=== PATIENT | male | born 1935 | race Caucasian/White ===

== ENCOUNTER 2017-06-25 14:20 | Inpatient (IN) ==
--- NOTE | 2017-06-25 16:01 | XRay Report ---
XR chest 2V Indication: Congestion, cough Comparison: 29 Jan 2014 Findings: The heart and mediastinum are stable in size and configuration with cardiac surgery changes. Pacemaker device is unchanged in position. The pulmonary vascularity is normal in caliber. Lung volumes are increased with prominent bronchial markings. There is increased right midlung density. No other lung infiltrates, effusions, pneumothorax or other abnormality is demonstrated. Impression: Increased right midlung density may indicate pneumonia. PROCEDURE INTERPRETED AT [facility] DEPARTMENT OF RADIOLOGY Final Report Signed by: Dr. Tutu Osborne
--- NOTE | 2017-06-25 16:30 | Emergency Department Note ---
Arrival - Arrival Chief Complaint: Upper Respiratory Stated Complaint: Body ache, high fever, nauseated ED Nursing Triage Note: cough and body aches with fever x 2 days - pt states that his has been sick with URI Mode of Arrival: Ambulatory Limitations: No Limitations Source: Patient Time Seen by Provider: 06/25/17 16:24 - History of Present Illness HPI Narrative: 82 year old white male patient presents to the ER complaining of fever, body aches, cough and chills. Symptoms started three days ago. Denies urinary symptoms, dyspnea, or chest pain. Patient states "I feel like I have the flu". Reports recent exposure to URI/Bronchitis by his . He has been alternating tylenol and aspirin for fever. PMH: cardiac disease, bph, degenerative joint disease, hyperlipidemia, CABG, Aortic Aneurysm, Aortic valve replacement. PCP: Dr. Aviles. Onset (ago): day(s) Consistency: intermittent Severity: moderate Severity scale (1-10): 3 Quality: aching Allergies/Adverse Reactions: Allergies Allergy/AdvReac Type Severity Reaction Status Date / Time No Known Allergies Allergy Verified 01/16/15 06:42 Home Medications: Home Medications Medication Instructions Recorded Confirmed Type Aspirin Tab 325 mg PO DAILY 01/16/15 06/25/17 History Carvedilol 6.25 mg PO BID 01/16/15 06/25/17 History Flomax 0.4 mg PO DAILY 01/16/15 06/25/17 History Isosorbide Mononitrate [Imdur] 30 mg PO DAILY 01/16/15 06/25/17 History Nitroglycerin Sl Tab [Nitrostat] 0.4 mg SL Q5M PRN 01/16/15 06/25/17 History Potassium Chloride Tab [K Dur] 20 meq PO DAILY 01/16/15 06/25/17 History Torsemide 20 mg PO DAILY 01/16/15 06/25/17 History Vitamin D 1,000 units PO DAILY 01/16/15 06/25/17 History amLODIPine [Norvasc] 10 mg PO DAILY 01/16/15 06/25/17 History Amlodipine Besylate 10 mg PO DAILY 06/25/17 06/25/17 History Amoxicillin/Clav Tab [Augmentin 875 mg PO Q12H #8 tablet 06/28/17 Rx Tab] Review of System - Review of System 12 point system: reviewed and no additional remarkable complaints except as stated - Review of System Constitutional: Present: chills (occurs with fever ), fever (reports intermittent fever of 101-102). 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.), Cerebrovascular Disease (possible stroke after AVR placement.), CAD, Hypertension, Pacemaker, Valvular Heart Disease (AVR replacement), Cardiovascular Problems (has a disecting aortic aneurysm..Type A..diagnosed in 2011) No history of: Congenital Heart Disease, CHF, [place], PVD Neurology: History of: Cerebrovascular Accident, Dementia (possibly early signs of dementia) Endocrine: History of: Dyslipidemia Genitourinary: History of: Kidney Stones, Prostate Problems (BPH) Musculoskeletal: History of: Musculoskeletal Problems (degenerative joint disease-knees) - Surgical History Cardiac Surgeries: Sugical HX of: Cardiac Catheterization, Cardiac Surgery ( cabg and avr) Patient Denies: Femoral-Popliteal Bypass Graft, Carotid Endarterectomy, Internal Defibrillator, Vascular Access Devices HEENT Surgeries: Surgical HX of: Tonsilectomy & Adenoidectomy Patient denies: Carotid Endarterectomy Abdominal Surgeries: Patient denies: Splenectomy - Family History Family History: Reports;: Family Diabetes (sister, brother), Family Heart Disease (brother, mother-valve), Family Hypertension (brother) - Social History Smoking Status: Never smoker Frequency of Alcohol Use: None Type of Drug Use: None Exam Vital Signs: Vital Signs Temperature 98.1 F 06/28/17 12:30 Pulse Rate 93 H 06/28/17 12:30 Respiratory Rate 20 06/28/17 12:30 Blood Pressure 115/72 06/28/17 12:30 O2 Sat by Pulse Oximetry 95 06/28/17 12:30 - General General appearance: alert, in no apparent distress - Eye Eye exam: Present: normal appearance - ENT ENT exam: Present: normal exam, normal oropharynx, mucous membranes moist - Chest Chest inspection: Present: normal inspection - Respiratory Respiratory exam: Present: normal lung sounds bilaterally. Absent: respiratory distress, rhonchi, stridor - Cardiovascular Cardiovascular exam: Present: regular rate, normal rhythm, normal heart sounds - Abdominal Exam Abdominal exam: Present: soft, normal bowel sounds. Absent: tenderness - Extremities Exam Extremities exam: Present: normal inspection, full ROM - Back Exam Back exam: Absent: CVA tenderness (R), CVA tenderness (L) - Neurological Exam Neurological exam: Present: alert, oriented X3 - Psychiatric Psychiatric exam: Present: normal affect, normal mood - Skin Skin exam: Present: warm, dry Course Course Narrative: Patient signed over to Dr. Busch at 1800. Results - Labs CBC & BMP: 06/28/17 07:17 06/28/17 07:17 Lab Results: I have reviewed the patients labs - Diagnostic Findings Procedure: Chest x-ray: image reviewed by me, report reviewed by me (increased right lung density may indicate pneumonia) Disposition Clinical Impression: Pneumonia Disposition: Still a Patient Condition: Stable New Prescriptions: Rx's Medication Instructions Recorded Amoxicillin/Clav Tab [Augmentin 875 mg PO Q12H #8 tablet 06/28/17 Tab]
[2017-06-25 17:55] LABS: Basophils % 0.2 % (0.0-0.8); Eosinophils % 0.2 % (0.00-10.9); Hematocrit 46.1 VOL% (42.0-52.0); Hemoglobin 15.9 GM/DL (14.0-18.0); Immature Granulocytes % 0.4 %; Immature Granulocytes Absolute 0.02 #; Lymphocytes # 0.7 10*3/uL (1.4-4.0); Mean Corpuscular HGB Conc 34.5 GM/DL (32-36); Mean Corpuscular Hemoglobin 33 PG (27-34); Mean Corpuscular Volume 95.6 FL (87-102); Mean Platelet Volume 10.5 FL (9.6-12.0); Monocytes # 0.5 10*3/uL (0.11-0.8); Monocytes % 11.1 % (1.7-12.7); Neutrophils # 3.6 10*3/uL (1.4-7.4); Neutrophils % 74.1 % (38.7-73.9); Platelet Count 91 T/CUMM (130-400); Red Blood Count 4.82 MC/CUMM (3.8-5.5); Red Cell Distribution Width 13.3 % (9.3-17.3); White Blood Count 4.8 T/CUMM (4-12)
[2017-06-25 17:59] LABS: Apearance,Urine CLEAR (Clear); Bilirubin,Urine Negative (Negative); Blood, Urine Negative (Negative); Glucose,Urine (UA) Negative (Negative); Hyaline Casts,Urine 2 /LPF (0-3); Ketones,Urine Negative (Negative); Mucus,Urine Occasional /LPF (Occasional); Nitrite,Urine Negative (Negative); Protein,Urine Negative; Urine Color Yellow (Yellow); Urine Specific Gravity 1.013 (1.001-1.035); Urine Urobilinogen < 2.0 EU/DL (0.2-1.0); WBC,Urine <1 /HPF (0-6)
[2017-06-25 18:30] LABS: Calcium 9.5 MG/DL (8.5-10.1); Osmolality,Calculated 279.5 MOS/KG (273-304); Potassium 4.4 MMOL/L (3.5-5.1); Total Protein 7.5 G/DL (6.4-8.3)
[2017-06-25] MEDS ORDERED: ACETAMINOPHEN 325 MG TABLET PO ONE (18:34)
[2017-06-25] MEDS ORDERED: ACETAMINOPHEN 325 MG TABLET ONE (18:36)
[2017-06-25] MEDS ORDERED: guaiFENesin/DM ER 600-30 MG TABLET PO PRN (20:39)
[2017-06-25] MEDS ORDERED: DOCUSATE SODIUM 100 MG CAPSULE PO PRN (20:39)
[2017-06-25] MEDS ORDERED: ONDANSETRON 4 MG/2 ML VIAL IV PRN (20:39)
[2017-06-25] MEDS ORDERED: ACETAMINOPHEN 325 MG TABLET PO PRN (20:39)
[2017-06-25] MEDS ORDERED: NITROGLYCERIN SL 0.4 MG TABLET SL PRN (20:42)
[2017-06-25] MEDS ORDERED: ENOXAPARIN 30 MG/0.3 ML SYRINGE SUBCUT SCH (21:00)
[2017-06-25] MEDS ORDERED: AZITHROMYCIN 500 MG VIAL IV ONE (21:24)
[2017-06-25] MEDS: AZITHROMYCIN INJ 500 MG in SODIUM CHLORIDE 0.9% 250 ML IV SCH (21:32)
--- NOTE | 2017-06-25 22:04 | Hospitalist History & Physical ---
Assessment and Plan - Time spent with patient Time spent with patient: Less than 30 minutes (35 minutes) (1) Pneumonia Status: Acute Assessment and plan: Community-acquired pneumonia. 1 g Rocephin 500 mg Zithromax. Sputum cultures. Repeat chest x-ray in a.m. Continue IV fluids. Solu-Medrol 62.5 every 8 hour Current Visit: Yes (2) Coronary artery disease Status: Chronic Current Visit: Yes Qualifiers: Coronary Disease-Associated Artery/Lesion type: bypass graft (3) Fever Status: Acute Current Visit: Yes (4) Chills Status: Acute Assessment and plan: Blood cultures urine cultures. Patient on broad-spectrum antibiotics. However no fevers since evaluated in the emergency room. 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 Patient mentions that the fevers were as high as 102. He describes severe chills and malaise for which he has been laying around in bed for the past day and a half. However the fevers continued to worsen today. He was not getting much relief despite taking Tylenol and over -the-counter preparations. On today, the patient had several episodes of feeling tired and weak. When his symptoms were not improving, he sought further evaluation and assistance in the local emergency room. Patient gives a history of significant cardiac history and wanted further assurance. No chest pain reported. His workup did include a chest x-ray that showed evidence of a pneumonia. Patient's influenza swabs are negative. Home Medications Medication Instructions Recorded Confirmed Type Aspirin Tab 325 mg PO DAILY 01/16/15 01/30/15 History Carvedilol 3.125 mg PO BID 01/16/15 01/30/15 History Flomax 0.4 mg PO DAILY 01/16/15 01/30/15 History Isosorbide Mononitrate [Imdur] 30 mg PO DAILY 01/16/15 01/30/15 History Nitroglycerin Sl Tab [Nitrostat] 0.4 mg SL Q5M PRN 01/16/15 01/30/15 History Potassium Chloride Tab [K Dur] 20 meq PO DAILY 01/16/15 01/30/15 History Ranitidine Tab [Zantac Tab] 150 mg PO BID 01/16/15 01/30/15 History Simvastatin 10 mg PO DAILY 01/16/15 01/30/15 History Torsemide 20 mg PO DAILY 01/16/15 01/30/15 History Vitamin D 1,000 units PO DAILY 01/16/15 01/30/15 History amLODIPine [Norvasc] 10 mg PO DAILY 01/16/15 01/30/15 History Allergies Allergy/AdvReac Type Severity Reaction Status Date / Time No Known Allergies Allergy Verified 01/16/15 06:42 Medical,Surgical,& Family Hx - Medical History Cardio: History of: Aneurysm, Cardiac Dysrhythmia (AFib after cardiac surg. for short period.), Cerebrovascular Disease (possible stroke after AVR placement.), CAD, Hypertension, Pacemaker, Valvular Heart Disease (AVR replacement), Cardiovascular Problems (has a disecting aortic aneurysm..Type A..diagnosed in 2011) No history of: Congenital Heart Disease, CHF, [place], PVD Neurology: History of: Cerebrovascular Accident, Dementia (possibly early signs of dementia) Endocrine: History of: Dyslipidemia Genitourinary: History of: Kidney Stones, Prostate Problems (BPH) Musculoskeletal: History of: Musculoskeletal Problems (degenerative joint disease-knees) - Surgical History Cardiac Surgeries: Sugical HX of: Cardiac Catheterization, Cardiac Surgery ( cabg and avr) Patient Denies: Femoral-Popliteal Bypass Graft, Carotid Endarterectomy, Internal Defibrillator, Vascular Access Devices HEENT Surgeries: Surgical HX of: Tonsilectomy & Adenoidectomy Patient denies: Carotid Endarterectomy Abdominal Surgeries: Patient denies: Splenectomy - Family History Family History: Reports;: Family Diabetes (sister, brother), Family Heart Disease (brother, mother-valve), Family Hypertension (brother) - Social History Smoking Status: Never smoker Frequency of Alcohol Use: None Type of Drug Use: None - Constitutional Constitutional: Present: chills, fatigue, fever(s), malaise - EENT Nose, mouth and throat: Absent: dysphagia - Cardiovascular Cardiovascular: Absent: chest pain at rest, chest pain with activity - Respiratory Respiratory: Present: cough, dyspnea - Gastrointestinal Gastrointestinal: Absent: abdominal pain - Musculoskeletal Musculoskeletal: Present: arthralgias - Neurological Neurological: Absent: abnormal gait, abnormal speech - Psychiatric Psychiatric: Absent: anxiety, depression Exam - Constitutional Vitals: Period Temp Pulse Resp BP Sys/Moser Pulse Ox Last 24 Hr 98.7 F-98.8 F 62-74 20-22 110-112/67-72 98 General appearance: normal weight - Head Head exam: Present: normal inspection - Neck Neck exam: Present: normal inspection - Respiratory Respiratory exam: Present: clear to auscultation bilaterally - Cardiovascular Cardiovascular exam: Present: regular rate and rhythm, other (Healed surgical midline scar) - GI/Abdominal GI/Abdominal exam: Present: normal bowel sounds - Extremities Exam Extremities exam: Present: normal inspection, full ROM - Neurological Exam Neurological exam: Present: alert, oriented X3, CN II-XII intact - Psychiatric Psychiatric exam: Present: normal affect, normal mood - Skin Skin exam: Present: normal color, warm, dry Results - Labs CBC & BMP: 06/25/17 17:33 06/25/17 17:52 - Diagnostic Findings Procedure: Chest x-ray: report reviewed by me (Evidence of pneumonia right mid lung)
[2017-06-25] MEDS ORDERED: INFLUENZA VIRUS VACCINE 0.5 ML SYRINGE IM ONE (22:17)
[2017-06-25] MEDS: FAMOTIDINE 20 MG TABLET PO SCH (23:01)
[2017-06-25] MEDS: CARVEDILOL 3.125 MG TABLET PO SCH (23:01)
[2017-06-25] MEDS: SODIUM CHLORIDE 0.45% 1,000 ML IV SCH (23:01)
[2017-06-25] MEDS: methylPREDNISolone SOD SUC 125 MG/2 ML VIAL IV SCH (23:01)
[2017-06-26] MEDS: methylPREDNISolone SOD SUC 125 MG/2 ML VIAL IV SCH ×3 (05:31→21:30)
[2017-06-26 07:27] LABS: Hematocrit 40.6 VOL% (42.0-52.0); Hemoglobin 14.3 GM/DL (14.0-18.0); Immature Granulocytes % 0.4 %; Immature Granulocytes Absolute 0.01 #; Lymphocytes # 0.4 10*3/uL (1.4-4.0); Lymphocytes % 14.2 % (21.2-54.2); Mean Corpuscular HGB Conc 35.2 GM/DL (32-36); Mean Corpuscular Hemoglobin 33 PG (27-34); Mean Platelet Volume 11.2 FL (9.6-12.0); Monocytes # 0.1 10*3/uL (0.11-0.8); Monocytes % 3.1 % (1.7-12.7); Neutrophils # 2.1 10*3/uL (1.4-7.4); Neutrophils % 82.3 % (38.7-73.9); Red Blood Count 4.32 MC/CUMM (3.8-5.5); Red Cell Distribution Width 13.2 % (9.3-17.3)
[2017-06-26 07:30] LABS: Platelet Count 75 T/CUMM (130-400); White Blood Count 2.5 T/CUMM (4-12)
[2017-06-26 07:54] LABS: Calcium 8.7 MG/DL (8.5-10.1); Osmolality,Calculated 279.8 MOS/KG (273-304); Potassium 4.1 MMOL/L (3.5-5.1)
[2017-06-26 08:02] LABS: Hypochromasia Slight; Microcytosis Slight; Ovalocytes Slight; Platelet Estimate Decreased
--- NOTE | 2017-06-26 08:47 | XRay Report ---
XR chest 2V Indication: Shortness of breath Comparison: One June 2017 Findings: The heart and mediastinum are stable in size and configuration with cardiac surgery changes. Pacemaker device is unchanged in position. The pulmonary vascularity is normal in caliber. Lung volumes are increased with prominent bronchial markings. There is slight improvement of the right midlung infiltrates. No other lung infiltrates, effusions, pneumothorax or other abnormality is demonstrated. Impression: Slight improvement in the right midlung infiltrates. No other acute findings. PROCEDURE INTERPRETED AT [facility] DEPARTMENT OF RADIOLOGY Final Report Signed by: Dr. Tutu Osborne
[2017-06-26] MEDS: SODIUM CHLORIDE 0.45% 1,000 ML IV SCH ×2 (09:16→21:29)
[2017-06-26] MEDS: ASPIRIN 325 MG TABLET PO SCH (09:18)
[2017-06-26] MEDS: TORSEMIDE 20 MG TABLET PO SCH (09:18)
[2017-06-26] MEDS: CARVEDILOL 3.125 MG TABLET PO SCH ×2 (09:18→21:27)
[2017-06-26] MEDS: TAMSULOSIN 0.4 MG CAPSULE PO SCH (09:19)
[2017-06-26] MEDS: ISOSORBIDE MONONITRATE 30 MG TABLET PO SCH (09:19)
[2017-06-26] MEDS: amLODIPine 10 MG TABLET PO SCH (09:20)
[2017-06-26] MEDS: FAMOTIDINE 20 MG TABLET PO SCH ×2 (09:20→21:27)
[2017-06-26] MEDS: POTASSIUM CHLORIDE 20 MEQ TABLET PO SCH (09:20)
[2017-06-26] MEDS: SIMVASTATIN 10 MG TABLET PO SCH (09:20)
[2017-06-26] MEDS: CHOLECALCIFEROL 1,000 UNIT TABLET PO SCH (09:20)
--- NOTE | 2017-06-26 12:18 | Hospitalist Progress Note ---
Assessment and Plan (1) Leukopenia Status: Acute Assessment and plan: Patient will count is better 2.7 despite the presence of pneumonia. This is a concern. The presence of thrombocytopenia as mentioned below alongside these even though the hemoglobin is normal myelodysplastic process to can be in picture. Need continue to follow Current Visit: Yes (2) Thrombocytopenia Status: Acute Assessment and plan: Patient should be taken off Lovenox. Use SCDs for DVT prophylaxis. Current Visit: Yes (3) Pneumonia Status: Acute Assessment and plan: Patient was given azithromycin at admission. Will need to ceftriaxone 2 g daily ; To complete treatment of community-acquired pneumonia. Current Visit: Yes (4) Chills Status: Acute Assessment and plan: Is secondary to the pneumonia mentioned above treatment as mentioned above we will give antipyretics for fevers equal to or greater than 100.4F Current Visit: Yes (5) Fatigue Status: Acute Assessment and plan: Most likely deconditioning from acute illness. Continue to follow Current Visit: Yes Hospitalist: Subjective Interval history: Patient has been seen interviewed and examined chart has been reviewed. Mr. Childress was admitted overnight by my colleagues presented to the hospital with a 3 day history of fever chills and cough. Chest x-ray showed evidence of pneumonia his influenza swabs were negative.The abnormality of the chest x-ray was in the right midlung. Exam - Constitutional Vitals: Period Temp Pulse Resp BP Sys/Moser Pulse Ox Last 24 Hr 97.3 F-100.0 F 62-74 16-22 104-115/64-73 91-98 General appearance: normal weight - Head Head exam: Present: normocephalic, atraumatic - Eye Eye exam: Present: EOMI Pupils: Present: AMBER - ENT ENT exam: Present: normal exam - Neck Neck exam: Present: normal inspection - Respiratory Respiratory exam: Present: other (Bibasilar crackles with increased bronchophony in the right mid and upper lung. There may be a small density in the left lower lobe too. No wheezing no rales) - Cardiovascular Cardiovascular exam: Present: regular rate and rhythm, systolic murmur (At the aortic site) - GI/Abdominal GI/Abdominal exam: Present: normal bowel sounds, soft - Extremities Exam Extremities exam: Present: full ROM - Neurological Exam Neurological exam: Present: alert, oriented X3, CN II-XII intact - Psychiatric Psychiatric exam: Present: normal affect, normal mood - Skin Skin exam: Present: normal color, warm, dry Results - Labs CBC & BMP: 06/26/17 06:11 06/26/17 06:11 Lab Results: I have reviewed the past 24 hour labs (Relative leukopenia and thrombocytopenia with a normal hemoglobin)
[2017-06-26 15:19] LABS: Apearance,Urine CLEAR (Clear); Bilirubin,Urine Negative (Negative); Blood, Urine Negative (Negative); Glucose,Urine (UA) 50 mg/dL (Negative); Ketones,Urine Negative (Negative); Mucus,Urine Occasional /LPF (Occasional); Nitrite,Urine Negative (Negative); Protein,Urine Negative; Urine Color Yellow (Yellow); Urine Specific Gravity 1.015 (1.001-1.035); Urine Urobilinogen < 2.0 EU/DL (0.2-1.0); WBC,Urine 1 /HPF (0-6)
[2017-06-26] MEDS: AZITHROMYCIN INJ 500 MG in SODIUM CHLORIDE 0.9% 250 ML IV SCH (21:27)
[2017-06-27] MEDS: SODIUM CHLORIDE 0.45% 1,000 ML IV SCH ×2 (05:19→15:05)
[2017-06-27] MEDS: methylPREDNISolone SOD SUC 125 MG/2 ML VIAL IV SCH (05:46)
[2017-06-27] MEDS: TAMSULOSIN 0.4 MG CAPSULE PO SCH (09:00)
[2017-06-27] MEDS: CARVEDILOL 3.125 MG TABLET PO SCH ×2 (09:00→20:33)
[2017-06-27] MEDS: CHOLECALCIFEROL 1,000 UNIT TABLET PO SCH (09:00)
[2017-06-27] MEDS: ASPIRIN 325 MG TABLET PO SCH (09:00)
[2017-06-27] MEDS: POTASSIUM CHLORIDE 20 MEQ TABLET PO SCH (09:01)
[2017-06-27] MEDS: FAMOTIDINE 20 MG TABLET PO SCH ×2 (09:01→20:32)
[2017-06-27] MEDS: ISOSORBIDE MONONITRATE 30 MG TABLET PO SCH (09:01)
[2017-06-27] MEDS: amLODIPine 10 MG TABLET PO SCH (09:01)
[2017-06-27] MEDS: TORSEMIDE 20 MG TABLET PO SCH (09:01)
[2017-06-27] MEDS: SIMVASTATIN 10 MG TABLET PO SCH (09:05)
--- NOTE | 2017-06-27 10:17 | Hospitalist Progress Note ---
Assessment and Plan (1) Pneumonia Status: Acute Assessment and plan: He appears to be improving. He continues on intravenous ceftriaxone and azithromycin. I discussed with him that if he is doing well tomorrow he will be discharged on oral antibiotics. Current Visit: Yes Qualifiers: Pneumonia type: due to unspecified organism (2) Leukopenia Status: Acute Assessment and plan: His white blood count was 4800 on admission, decreasing to 2500 the next day. He has been seen in consultation by hematology who has not recommended any further evaluation at this time. Current Visit: Yes (3) Thrombocytopenia Status: Acute Assessment and plan: His most recent platelet count was 75,000 yesterday. He states that he has a previous history of chronic thrombocytopenia for which she is undergone previous evaluation. 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 He is presently being treated with intravenous ceftriaxone and azithromycin. He states that he has a history of chronic thrombocytopenia for which she is undergone evaluation in the past. His platelet count today is 75,000, decreased from 91,000, and his white count is 2500. Exam - Constitutional Vitals: Period Temp Pulse Resp BP Sys/Moser Pulse Ox Last 24 Hr 97.3 F-97.8 F 65-78 18-18 100-119/62-73 91-94 General appearance: no acute distress - Head Head exam: Present: normal inspection - Neck Neck exam: Present: normal inspection - Respiratory Respiratory exam: Present: clear to auscultation bilaterally - Cardiovascular Cardiovascular exam: Present: regular rate and rhythm - GI/Abdominal GI/Abdominal exam: Present: normal bowel sounds, soft, other (Nontender with no palpable masses or hepatosplenomegaly.) - Extremities Exam Extremities exam: Present: normal inspection - Skin Skin exam: Present: normal color, warm, intact Results - Labs CBC & BMP: 06/26/17 06:11 06/26/17 06:11
[2017-06-27] MEDS: AZITHROMYCIN INJ 500 MG in SODIUM CHLORIDE 0.9% 250 ML IV SCH (20:33)
[2017-06-28] MEDS: SODIUM CHLORIDE 0.45% 1,000 ML IV SCH ×2 (00:51→04:04)
[2017-06-28 07:43] LABS: Hematocrit 39.5 VOL% (42.0-52.0); Hemoglobin 14.1 GM/DL (14.0-18.0); Immature Granulocytes % 0.8 %; Immature Granulocytes Absolute 0.05 #; Lymphocytes # 0.4 10*3/uL (1.4-4.0); Lymphocytes % 6.5 % (21.2-54.2); Mean Corpuscular HGB Conc 35.7 GM/DL (32-36); Mean Corpuscular Hemoglobin 34 PG (27-34); Mean Corpuscular Volume 93.8 FL (87-102); Mean Platelet Volume 10.4 FL (9.6-12.0); Monocytes # 0.3 10*3/uL (0.11-0.8); Monocytes % 4.2 % (1.7-12.7); Neutrophils # 5.5 10*3/uL (1.4-7.4); Neutrophils % 88.5 % (38.7-73.9); Platelet Count 102 T/CUMM (130-400); Red Blood Count 4.21 MC/CUMM (3.8-5.5); Red Cell Distribution Width 13.5 % (9.3-17.3); White Blood Count 6.2 T/CUMM (4-12)
[2017-06-28 08:09] LABS: Hypochromasia Slight; Lymphocytes 8 % (20-55); Platelet Estimate Decreased; Segmented Neutrophils 91 % (50-85); Total Cells Counted 100
[2017-06-28 08:11] LABS: Calcium 8.1 MG/DL (8.5-10.1); Osmolality,Calculated 284.7 MOS/KG (273-304); Potassium 3.8 MMOL/L (3.5-5.1)
[2017-06-28] MEDS ORDERED: predniSONE 20 MG TABLET PO SCH (09:00)
[2017-06-28] MEDS: TORSEMIDE 20 MG TABLET PO SCH (09:22)
[2017-06-28] MEDS: TAMSULOSIN 0.4 MG CAPSULE PO SCH (09:22)
[2017-06-28] MEDS: FAMOTIDINE 20 MG TABLET PO SCH (09:22)
[2017-06-28] MEDS: CARVEDILOL 3.125 MG TABLET PO SCH (09:22)
[2017-06-28] MEDS: amLODIPine 10 MG TABLET PO SCH (09:22)
[2017-06-28] MEDS: SIMVASTATIN 10 MG TABLET PO SCH (09:22)
[2017-06-28] MEDS: ASPIRIN 325 MG TABLET PO SCH (09:22)
[2017-06-28] MEDS: CHOLECALCIFEROL 1,000 UNIT TABLET PO SCH (09:22)
[2017-06-28] MEDS: ISOSORBIDE MONONITRATE 30 MG TABLET PO SCH (09:22)
[2017-06-28] MEDS: POTASSIUM CHLORIDE 20 MEQ TABLET PO SCH (09:22)
--- NOTE | 2017-06-28 10:10 | Discharge Summary ---
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 Patient mentions that the fevers were as high as 102. He describes severe chills and malaise for which he has been laying around in bed for the past day and a half. However the fevers continued to worsen today. He was not getting much relief despite taking Tylenol and over -the-counter preparations. On today, the patient had several episodes of feeling tired and weak. When his symptoms were not improving, he sought further evaluation and assistance in the local emergency room. Patient gives a history of significant cardiac history and wanted further assurance. No chest pain reported. His workup did include a chest x-ray that showed evidence of a pneumonia. Patient's influenza swabs are negative. 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 Subsequent laboratory testing demonstrated an increase of his white blood count to 6400. At the time of his discharge he felt significantly better and was eager to go home. Diagnosis - Discharge Diagnosis (1) Pneumonia Status: Acute (2) Leukopenia Status: Acute (3) Thrombocytopenia Status: Chronic Discharge Plan - Discharge Data Disposition: Disch To Home/Self Care Condition at Discharge: Stable Discharge Diet: advance to your usual diet Activity: resume usual activities as tolerated - Discharge Medications New Amoxicillin/Clav Tab [Augmentin Tab] 875 mg PO Q12H #8 tablet Continue Nitroglycerin Sl Tab [Nitrostat] 0.4 mg SL Q5M PRN PRN Reason: Chest Pain Isosorbide Mononitrate [Imdur] 30 mg PO DAILY Potassium Chloride Tab [K Dur] 20 meq PO DAILY Aspirin Tab 325 mg PO DAILY amLODIPine [Norvasc] 10 mg PO DAILY Vitamin D 1,000 units PO DAILY Torsemide 20 mg PO DAILY Flomax 0.4 mg PO DAILY Carvedilol 6.25 mg PO BID Amlodipine Besylate 10 mg PO DAILY - Follow Up or Referral - Forms/Instructions Exam - Constitutional Vitals: Period Temp Pulse Resp BP Sys/Moser Pulse Ox Last 24 Hr 97.2 F-98.1 F 60-74 18-20 98-112/56-68 92-95 Discharge Results Procedures and tests throughout hospitalization: Pending Orders 06/25/17 17:33 Blood Culture Stat 06/28/17 06:20 Sputum Culture and Gram Stain Routine Labs on day of discharge: Labs from last 24 hours 06/28/17 06/28/17 07:17 07:17 WBC 6.2 D RBC 4.21 Hgb 14.1 Hct 39.5 L MCV 93.8 MCH 34 MCHC 35.7 RDW 13.5 Plt Count 102 L D MPV 10.4 Neut % (Auto) 88.5 H Lymph % (Auto) 6.5 L [place] % (Auto) 4.2 Eos % (Auto) 0.0 Baso % (Auto) 0.0 Neut # (Auto) 5.5 Lymph # (Auto) 0.4 L [place] # (Auto) 0.3 Eos # (Auto) 0.0 Baso # (Auto) 0.0 Total Counted 100 Immature Gran % 0.8 Nucleated RBC % 0.0 Immature Gran # 0.05 Segmented Neutrophils 91 H Lymphocytes 8 L Monocytes 1 L Nucleated RBCs # 0.00 Platelet Estimate Decreased Immature Plt Fraction 0.0 Hypochromasia Slight Sodium 138 Potassium 3.8 Chloride 108 H Carbon Dioxide 21 Anion Gap 12.8 BUN 29 H Creatinine 1.20 GFR Calculation 72 BUN/Creatinine Ratio 24.00 H Glucose 173 H Calculated Osmolality 284.7 Calcium 8.1 L Preliminary micro results at discharge 06/25/17 17:33 Blood Culture - Preliminary Blood No growth at 1 day 06/25/17 17:33 Blood Culture - Preliminary Blood No growth at 1 day DS: Provider Date of admission: 06/25/17 20:39 Primary care physician: Jaret Aviles MD Attending physician on admission: Jhonatan Leblanc MD Consults: 06/25/17 21:51 Consult to Pastoral Services [CONS] Routine Comment: Pastoral Screen: Request Installer Apprentice Visit Pastoral Screen Source of Request: Patient Discharging clinician: Luan Jacobs
[2017-06-28 12:43] VITALS: BP 115/72
== END 2017-06-28 14:49 | disposition home or self-care (01) | DRG 194 ==
LOC: N.ED 14:20 → SUATTDRO 20:39 → N.EDINP 20:39 → N.5E 21:39
PROVIDERS: ADMIT Internal Medicine

== ENCOUNTER 2020-11-13 12:48 | Inpatient (IN) ==
[2020-11-13 13:31] LABS: Basophils % 0.4 % (0.0-0.8); Eosinophils # 0.1 10*3/uL (0.0-0.87); Hematocrit 38.6 VOL% (42.0-52.0); Hemoglobin 12.6 GM/DL (14.0-18.0); Immature Granulocytes % 0.4 %; Immature Granulocytes Absolute 0.01 #; Lymphocytes # 0.5 10*3/uL (1.4-4.0); Lymphocytes % 19.7 % (21.2-54.2); Mean Corpuscular HGB Conc 32.6 GM/DL (32-36); Mean Corpuscular Volume 95.8 FL (87-102); Mean Platelet Volume 11.1 FL (9.6-12.0); Monocytes % 12.4 % (1.7-12.7); Neutrophils % 63.1 % (38.7-73.9); Platelet Count 67 T/CUMM (130-400); Red Blood Count 4.03 MC/CUMM (3.8-5.5); Red Cell Distribution Width 16.2 % (9.3-17.3); White Blood Count 2.7 T/CUMM (4-12)
[2020-11-13 13:36] LABS: Bilirubin,Total 1.2 MG/DL (0.2-1.0); Calcium 8.2 MG/DL (8.5-10.1); Osmolality,Calculated 293.4 MOS/KG (273-304); Potassium 3.3 MMOL/L (3.5-5.1); Total Protein 5.7 G/DL (6.4-8.3)
[2020-11-13] MEDS ORDERED: ASPIRIN 325 MG TABLET PO STA (14:03)
[2020-11-13] MEDS ORDERED: FLUTICASONE 50 MCG NASAL SPRAY 16 GM BOTTLE BOTH NARES PRN (15:58)
[2020-11-13] MEDS ORDERED: POTASSIUM CHLORIDE 20 MEQ TABLET PO STA (16:01)
[2020-11-13] MEDS ORDERED: ONDANSETRON 4 MG/2 ML VIAL IV PRN (16:14)
[2020-11-13] MEDS ORDERED: MAGNESIUM SULF RIDER 4 GM in PREMIX 1 EACH IV PRN (16:14)
[2020-11-13] MEDS ORDERED: MAGNESIUM SULF RIDER 2 GM in PREMIX 1 EACH IV PRN (16:14)
[2020-11-13] MEDS ORDERED: SIMETHICONE CHEW 125 MG TABLET PO PRN (16:52)
[2020-11-13] MEDS ORDERED: DOCUSATE SODIUM 100 MG CAPSULE PO PRN (16:52)
[2020-11-13] MEDS ORDERED: ALUMINUM/MAGNES/SIMETH MAX STR 30 ML UDCUP PO PRN (16:52)
[2020-11-13] MEDS: NITROGLYCERIN SL 0.4 MG TABLET SL PRN ×2 (17:42→18:48)
[2020-11-13 18:03] LABS: Troponin I < 0.015 NG/ML (0.00-0.045)
[2020-11-13] MEDS: SODIUM CHLORIDE 0.45% 1,000 ML IV SCH (19:01)
[2020-11-13 19:46] LABS: Troponin I < 0.015 NG/ML (0.00-0.045)
[2020-11-13] MEDS ORDERED: SERTRALINE 25 MG TABLET PO SCH (21:00)
[2020-11-13] MEDS ORDERED: ENTRESTO PO SCH (21:00)
[2020-11-13] MEDS: ISOSORBIDE MONONITRATE 60 MG TABLET PO SCH (21:53)
[2020-11-13] MEDS: traZODone 50 MG TABLET PO SCH (21:53)
[2020-11-13] MEDS: ENOXAPARIN 30 MG/0.3 ML SYRINGE SUBCUT SCH (21:53)
[2020-11-13] MEDS: MORPHINE 4 MG/1 ML VIAL IV PRN (21:54)
[2020-11-13 22:47] LABS: Troponin I < 0.015 NG/ML (0.00-0.045)
[2020-11-14 06:59] LABS: Basophils % 0.7 % (0.0-0.8); Eosinophils # 0.1 10*3/uL (0.0-0.87); Eosinophils % 3.3 % (0.00-10.9); Hematocrit 39.6 VOL% (42.0-52.0); Hemoglobin 12.8 GM/DL (14.0-18.0); Immature Granulocytes % 0.4 %; Immature Granulocytes Absolute 0.01 #; Lymphocytes # 0.6 10*3/uL (1.4-4.0); Lymphocytes % 21.1 % (21.2-54.2); Mean Corpuscular HGB Conc 32.3 GM/DL (32-36); Mean Corpuscular Volume 97.1 FL (87-102); Mean Platelet Volume 11.8 FL (9.6-12.0); Monocytes % 12.4 % (1.7-12.7); Neutrophils % 62.1 % (38.7-73.9); Red Blood Count 4.08 MC/CUMM (3.8-5.5); Red Cell Distribution Width 16.3 % (9.3-17.3); White Blood Count 2.8 T/CUMM (4-12)
[2020-11-14 07:00] LABS: Platelet Count 68 T/CUMM (130-400)
[2020-11-14 07:19] LABS: Calcium 8.3 MG/DL (8.5-10.1); Osmolality,Calculated 292.5 MOS/KG (273-304)
[2020-11-14 07:22] LABS: Risk Ratio 2.69; VLDL CHOLESTEROL 15.2 MG/DL
[2020-11-14] MEDS ORDERED: TORSEMIDE 20 MG TABLET PO SCH (09:00)
[2020-11-14] MEDS ORDERED: FINASTERIDE 5 MG TABLET PO SCH (09:00)
[2020-11-14] MEDS ORDERED: metOLazone 5 MG TABLET PO SCH (09:00)
[2020-11-14] MEDS: ROSUVASTATIN 10 MG TABLET PO SCH (09:52)
[2020-11-14] MEDS: ASPIRIN EC 325 MG TABLET PO SCH (09:52)
[2020-11-14] MEDS: CALCIUM (CARBONATE)/VITAMIN D 600 MG-400 UNIT TABLET PO SCH (09:52)
[2020-11-14] MEDS: TAMSULOSIN 0.4 MG CAPSULE PO SCH (09:52)
[2020-11-14] MEDS: PANTOPRAZOLE 40 MG TABLET PO SCH (09:53)
[2020-11-14] MEDS: ISOSORBIDE MONONITRATE 60 MG TABLET PO SCH ×2 (09:53→20:44)
[2020-11-14] MEDS: POTASSIUM CHLORIDE 20 MEQ TABLET PO SCH (09:53)
[2020-11-14] MEDS: PSYLLIUM POWDER 3.7 GM/PACK PO SCH (10:11)
[2020-11-14] MEDS ORDERED: POTASSIUM CHLORIDE 20 MEQ TABLET PO PRN (14:51)
[2020-11-14] MEDS ORDERED: POTASSIUM CHLORIDE 20 MEQ TABLET PO ONE ×2 (15:00)
[2020-11-14] MEDS: NITROGLYCERIN SL 0.4 MG TABLET SL PRN (15:09)
[2020-11-14] MEDS: SODIUM CHLORIDE 0.45% 1,000 ML IV SCH ×2 (17:55→23:56)
[2020-11-14] MEDS: ENOXAPARIN 30 MG/0.3 ML SYRINGE SUBCUT SCH (20:44)
[2020-11-14] MEDS: SERTRALINE 50 MG TABLET PO SCH (20:44)
[2020-11-14] MEDS: MORPHINE 4 MG/1 ML VIAL IV PRN (20:44)
[2020-11-14] MEDS: traZODone 50 MG TABLET PO SCH (20:44)
[2020-11-15 04:43] LABS: Basophils % 0.6 % (0.0-0.8); Eosinophils # 0.1 10*3/uL (0.0-0.87); Eosinophils % 3.3 % (0.00-10.9); Hematocrit 37.1 VOL% (42.0-52.0); Hemoglobin 12.2 GM/DL (14.0-18.0); Immature Granulocytes % 0.3 %; Immature Granulocytes Absolute 0.01 #; Lymphocytes # 0.6 10*3/uL (1.4-4.0); Lymphocytes % 15.3 % (21.2-54.2); Mean Corpuscular HGB Conc 32.9 GM/DL (32-36); Mean Corpuscular Volume 96.4 FL (87-102); Mean Platelet Volume 11.3 FL (9.6-12.0); Monocytes % 13.6 % (1.7-12.7); Neutrophils % 66.9 % (38.7-73.9); Red Blood Count 3.85 MC/CUMM (3.8-5.5); Red Cell Distribution Width 16.2 % (9.3-17.3); White Blood Count 3.6 T/CUMM (4-12)
[2020-11-15 04:51] LABS: Platelet Count 72 T/CUMM (130-400)
[2020-11-15 04:59] LABS: Calcium 8.4 MG/DL (8.5-10.1); Potassium 3.3 MMOL/L (3.5-5.1)
[2020-11-15 05:00] LABS: Calcium 8.5 MG/DL (8.5-10.1); Osmolality,Calculated 292.7 MOS/KG (273-304); Potassium 3.4 MMOL/L (3.5-5.1)
[2020-11-15 05:02] LABS: Burr Cells 1+; Ovalocytes 2+; Platelet Estimate Decreased
[2020-11-15] MEDS ORDERED: POTASSIUM CHLORIDE 20 MEQ TABLET PO ONE (09:12)
[2020-11-15] MEDS: POTASSIUM CHLORIDE 20 MEQ TABLET PO SCH (10:01)
[2020-11-15] MEDS: CALCIUM (CARBONATE)/VITAMIN D 600 MG-400 UNIT TABLET PO SCH (10:01)
[2020-11-15] MEDS: ROSUVASTATIN 10 MG TABLET PO SCH (10:02)
[2020-11-15] MEDS: TAMSULOSIN 0.4 MG CAPSULE PO SCH (10:02)
[2020-11-15] MEDS: PANTOPRAZOLE 40 MG TABLET PO SCH (10:02)
[2020-11-15] MEDS: ISOSORBIDE MONONITRATE 60 MG TABLET PO SCH ×2 (10:02→20:49)
[2020-11-15] MEDS: PSYLLIUM POWDER 3.7 GM/PACK PO SCH (10:02)
[2020-11-15] MEDS: ASPIRIN EC 325 MG TABLET PO SCH (10:02)
[2020-11-15] MEDS: MORPHINE 4 MG/1 ML VIAL IV PRN ×2 (10:03→20:49)
[2020-11-15] MEDS: SODIUM CHLORIDE 0.45% 1,000 ML IV SCH (17:28)
[2020-11-15] MEDS: traZODone 50 MG TABLET PO SCH (20:49)
[2020-11-15] MEDS: SERTRALINE 50 MG TABLET PO SCH (20:49)
[2020-11-15] MEDS: ENOXAPARIN 30 MG/0.3 ML SYRINGE SUBCUT SCH (20:49)
[2020-11-16] MEDS: SODIUM CHLORIDE 0.45% 1,000 ML IV SCH (06:08)
[2020-11-16 06:39] LABS: Basophils % 0.5 % (0.0-0.8); Eosinophils # 0.1 10*3/uL (0.0-0.87); Eosinophils % 2.3 % (0.00-10.9); Hematocrit 38.9 VOL% (42.0-52.0); Hemoglobin 12.8 GM/DL (14.0-18.0); Immature Granulocytes % 0.3 %; Immature Granulocytes Absolute 0.01 #; Lymphocytes # 0.6 10*3/uL (1.4-4.0); Lymphocytes % 14.8 % (21.2-54.2); Mean Corpuscular HGB Conc 32.9 GM/DL (32-36); Mean Corpuscular Volume 96.3 FL (87-102); Mean Platelet Volume 12.3 FL (9.6-12.0); Monocytes % 11.1 % (1.7-12.7); Platelet Count 70 T/CUMM (130-400); Red Blood Count 4.04 MC/CUMM (3.8-5.5); Red Cell Distribution Width 16.3 % (9.3-17.3); White Blood Count 3.9 T/CUMM (4-12)
[2020-11-16 06:54] LABS: Calcium 8.9 MG/DL (8.5-10.1); Osmolality,Calculated 288.1 MOS/KG (273-304); Potassium 3.9 MMOL/L (3.5-5.1)
[2020-11-16 07:43] LABS: Hypochromasia 1+; Ovalocytes Few
[2020-11-16 07:44] LABS: Acanthocytes Few; Anisocytosis 1+; Microcytosis 1+; Platelet Estimate Decreased
[2020-11-16] MEDS: MORPHINE 4 MG/1 ML VIAL IV PRN ×3 (08:15→23:55)
[2020-11-16] MEDS: CALCIUM (CARBONATE)/VITAMIN D 600 MG-400 UNIT TABLET PO SCH (08:18)
[2020-11-16] MEDS: ASPIRIN EC 325 MG TABLET PO SCH (08:18)
[2020-11-16] MEDS: POTASSIUM CHLORIDE 20 MEQ TABLET PO SCH (08:18)
[2020-11-16] MEDS: PANTOPRAZOLE 40 MG TABLET PO SCH (08:18)
[2020-11-16] MEDS: ROSUVASTATIN 10 MG TABLET PO SCH (08:18)
[2020-11-16] MEDS: TAMSULOSIN 0.4 MG CAPSULE PO SCH (08:19)
[2020-11-16] MEDS: ISOSORBIDE MONONITRATE 60 MG TABLET PO SCH ×2 (08:20→20:30)
[2020-11-16] MEDS: PSYLLIUM POWDER 3.7 GM/PACK PO SCH (08:20)
[2020-11-16] MEDS: ENOXAPARIN 30 MG/0.3 ML SYRINGE SUBCUT SCH (20:30)
[2020-11-16] MEDS: traZODone 50 MG TABLET PO SCH (20:30)
[2020-11-16] MEDS: SERTRALINE 50 MG TABLET PO SCH (20:30)
[2020-11-17 05:45] LABS: Basophils % 0.5 % (0.0-0.8); Eosinophils # 0.1 10*3/uL (0.0-0.87); Eosinophils % 2.4 % (0.00-10.9); Hematocrit 37.5 VOL% (42.0-52.0); Hemoglobin 12.7 GM/DL (14.0-18.0); Immature Granulocytes % 0.5 %; Immature Granulocytes Absolute 0.02 #; Lymphocytes # 0.6 10*3/uL (1.4-4.0); Lymphocytes % 13.4 % (21.2-54.2); Mean Corpuscular HGB Conc 33.9 GM/DL (32-36); Mean Corpuscular Volume 94.7 FL (87-102); Monocytes % 10.8 % (1.7-12.7); Neutrophils % 72.4 % (38.7-73.9); Red Blood Count 3.96 MC/CUMM (3.8-5.5); Red Cell Distribution Width 16.3 % (9.3-17.3); White Blood Count 4.1 T/CUMM (4-12)
[2020-11-17 05:47] LABS: Platelet Count 67 T/CUMM (130-400)
[2020-11-17 06:09] LABS: Calcium 8.7 MG/DL (8.5-10.1); Osmolality,Calculated 287.2 MOS/KG (273-304); Potassium 4.1 MMOL/L (3.5-5.1); Potassium 4.2 MMOL/L (3.5-5.1)
[2020-11-17 06:10] LABS: Ovalocytes Slight; Platelet Estimate Decreased
[2020-11-17] MEDS: NITROGLYCERIN SL 0.4 MG TABLET SL PRN (07:47)
[2020-11-17] MEDS: SODIUM CHLORIDE 0.45% 1,000 ML IV SCH ×2 (09:28→17:06)
[2020-11-17] MEDS: ROSUVASTATIN 10 MG TABLET PO SCH (09:28)
[2020-11-17] MEDS: ASPIRIN EC 325 MG TABLET PO SCH (09:29)
[2020-11-17] MEDS: POTASSIUM CHLORIDE 20 MEQ TABLET PO SCH (09:29)
[2020-11-17] MEDS: ISOSORBIDE MONONITRATE 60 MG TABLET PO SCH ×2 (09:29→21:11)
[2020-11-17] MEDS: CALCIUM (CARBONATE)/VITAMIN D 600 MG-400 UNIT TABLET PO SCH (09:29)
[2020-11-17] MEDS: PANTOPRAZOLE 40 MG TABLET PO SCH (09:29)
[2020-11-17] MEDS: PSYLLIUM POWDER 3.7 GM/PACK PO SCH (09:29)
[2020-11-17] MEDS: TAMSULOSIN 0.4 MG CAPSULE PO SCH (09:29)
[2020-11-17] MEDS: MORPHINE 4 MG/1 ML VIAL IV PRN (20:46)
[2020-11-17] MEDS: ENOXAPARIN 30 MG/0.3 ML SYRINGE SUBCUT SCH (21:10)
[2020-11-17] MEDS: SERTRALINE 50 MG TABLET PO SCH (21:11)
[2020-11-17] MEDS: traZODone 50 MG TABLET PO SCH (21:11)
[2020-11-18] MEDS: MORPHINE 4 MG/1 ML VIAL IV PRN ×3 (03:11→22:30)
[2020-11-18 04:48] LABS: Basophils % 0.4 % (0.0-0.8); Eosinophils # 0.1 10*3/uL (0.0-0.87); Eosinophils % 2.3 % (0.00-10.9); Hematocrit 39.7 VOL% (42.0-52.0); Immature Granulocytes % 0.4 %; Immature Granulocytes Absolute 0.02 #; Lymphocytes # 0.7 10*3/uL (1.4-4.0); Lymphocytes % 13.2 % (21.2-54.2); Mean Corpuscular HGB Conc 32.7 GM/DL (32-36); Mean Corpuscular Volume 97.3 FL (87-102); Mean Platelet Volume 11.1 FL (9.6-12.0); Monocytes % 10.5 % (1.7-12.7); Neutrophils % 73.2 % (38.7-73.9); Platelet Count 82 T/CUMM (130-400); Red Blood Count 4.08 MC/CUMM (3.8-5.5); Red Cell Distribution Width 16.3 % (9.3-17.3); White Blood Count 5.2 T/CUMM (4-12)
[2020-11-18 05:06] LABS: Calcium 8.8 MG/DL (8.5-10.1); Osmolality,Calculated 287.4 MOS/KG (273-304); Potassium 4.2 MMOL/L (3.5-5.1)
[2020-11-18 05:10] LABS: Microcytosis 1+; Ovalocytes Few
[2020-11-18 05:11] LABS: Acanthocytes Few; Platelet Estimate Decreased
[2020-11-18] MEDS: ROSUVASTATIN 10 MG TABLET PO SCH (09:11)
[2020-11-18] MEDS: PANTOPRAZOLE 40 MG TABLET PO SCH (09:11)
[2020-11-18] MEDS: ASPIRIN EC 325 MG TABLET PO SCH (09:11)
[2020-11-18] MEDS: CALCIUM (CARBONATE)/VITAMIN D 600 MG-400 UNIT TABLET PO SCH (09:11)
[2020-11-18] MEDS: POTASSIUM CHLORIDE 20 MEQ TABLET PO SCH (09:11)
[2020-11-18] MEDS: TAMSULOSIN 0.4 MG CAPSULE PO SCH (09:11)
[2020-11-18] MEDS: PSYLLIUM POWDER 3.7 GM/PACK PO SCH (09:12)
[2020-11-18] MEDS: ISOSORBIDE MONONITRATE 60 MG TABLET PO SCH ×2 (09:12→21:38)
[2020-11-18] MEDS: NITROGLYCERIN SL 0.4 MG TABLET SL PRN (21:01)
[2020-11-18] MEDS: traZODone 50 MG TABLET PO SCH (21:38)
[2020-11-18] MEDS: ENOXAPARIN 30 MG/0.3 ML SYRINGE SUBCUT SCH (21:38)
[2020-11-18] MEDS: SERTRALINE 100 MG TABLET PO SCH (21:38)
[2020-11-19] MEDS: NITROGLYCERIN SL 0.4 MG TABLET SL PRN ×2 (05:30→18:15)
[2020-11-19 06:15] LABS: Basophils % 0.4 % (0.0-0.8); Eosinophils # 0.1 10*3/uL (0.0-0.87); Eosinophils % 1.6 % (0.00-10.9); Hematocrit 40.5 VOL% (42.0-52.0); Hemoglobin 13.2 GM/DL (14.0-18.0); Immature Granulocytes % 0.4 %; Immature Granulocytes Absolute 0.02 #; Lymphocytes # 0.9 10*3/uL (1.4-4.0); Mean Corpuscular HGB Conc 32.6 GM/DL (32-36); Mean Corpuscular Volume 96.2 FL (87-102); Mean Platelet Volume 11.5 FL (9.6-12.0); Monocytes % 11.1 % (1.7-12.7); Neutrophils % 69.5 % (38.7-73.9); Red Blood Count 4.21 MC/CUMM (3.8-5.5); Red Cell Distribution Width 16.5 % (9.3-17.3); White Blood Count 5.1 T/CUMM (4-12)
[2020-11-19 06:17] LABS: Platelet Count 83 T/CUMM (130-400)
[2020-11-19 06:38] LABS: Calcium 8.7 MG/DL (8.5-10.1); Osmolality,Calculated 290.2 MOS/KG (273-304); Potassium 4.4 MMOL/L (3.5-5.1)
[2020-11-19 06:41] LABS: Hypochromasia 1+
[2020-11-19 06:42] LABS: Acanthocytes Few; Microcytosis 1+; Ovalocytes Few; Platelet Estimate Decreased
[2020-11-19] MEDS: TAMSULOSIN 0.4 MG CAPSULE PO SCH (09:20)
[2020-11-19] MEDS: ASPIRIN EC 325 MG TABLET PO SCH (09:20)
[2020-11-19] MEDS: CALCIUM (CARBONATE)/VITAMIN D 600 MG-400 UNIT TABLET PO SCH (09:20)
[2020-11-19] MEDS: PSYLLIUM POWDER 3.7 GM/PACK PO SCH (09:20)
[2020-11-19] MEDS: ROSUVASTATIN 10 MG TABLET PO SCH (09:20)
[2020-11-19] MEDS: ISOSORBIDE MONONITRATE 60 MG TABLET PO SCH ×2 (09:21→20:05)
[2020-11-19] MEDS: PANTOPRAZOLE 40 MG TABLET PO SCH (09:21)
[2020-11-19] MEDS: POTASSIUM CHLORIDE 20 MEQ TABLET PO SCH (09:21)
[2020-11-19] MEDS ORDERED: FUROSEMIDE 40 MG TABLET PO ONE (14:18)
[2020-11-19] MEDS: MORPHINE 4 MG/1 ML VIAL IV PRN (19:53)
[2020-11-19] MEDS: SERTRALINE 100 MG TABLET PO SCH (20:04)
[2020-11-19] MEDS: ENOXAPARIN 30 MG/0.3 ML SYRINGE SUBCUT SCH (20:04)
[2020-11-19] MEDS: traZODone 50 MG TABLET PO SCH (20:04)
[2020-11-20] MEDS: NITROGLYCERIN SL 0.4 MG TABLET SL PRN ×3 (02:02→18:20)
[2020-11-20] MEDS: MORPHINE 4 MG/1 ML VIAL IV PRN ×2 (03:34→21:32)
[2020-11-20 06:01] LABS: Basophils % 0.2 % (0.0-0.8); Eosinophils # 0.1 10*3/uL (0.0-0.87); Eosinophils % 2.5 % (0.00-10.9); Hematocrit 37.8 VOL% (42.0-52.0); Hemoglobin 12.7 GM/DL (14.0-18.0); Immature Granulocytes % 0.2 %; Immature Granulocytes Absolute 0.01 #; Lymphocytes # 0.6 10*3/uL (1.4-4.0); Lymphocytes % 12.6 % (21.2-54.2); Mean Corpuscular HGB Conc 33.6 GM/DL (32-36); Mean Corpuscular Volume 93.6 FL (87-102); Monocytes % 10.3 % (1.7-12.7); Neutrophils % 74.2 % (38.7-73.9); Red Blood Count 4.04 MC/CUMM (3.8-5.5); Red Cell Distribution Width 16.5 % (9.3-17.3); White Blood Count 4.4 T/CUMM (4-12)
[2020-11-20 06:05] LABS: Platelet Count 73 T/CUMM (130-400)
[2020-11-20 06:33] LABS: Albumin 2.9 G/DL (3.4-5.0); Calcium 9.1 MG/DL (8.5-10.1); Osmolality,Calculated 291.2 MOS/KG (273-304); Potassium 4.2 MMOL/L (3.5-5.1); Total Protein 5.8 G/DL (6.4-8.3)
[2020-11-20 07:01] LABS: Acanthocytes Few; Hypochromasia 1+; Microcytosis 1+; Ovalocytes Few
[2020-11-20 07:02] LABS: Platelet Estimate Decreased
[2020-11-20] MEDS: ASPIRIN EC 325 MG TABLET PO SCH (09:20)
[2020-11-20] MEDS: PANTOPRAZOLE 40 MG TABLET PO SCH (09:20)
[2020-11-20] MEDS: ROSUVASTATIN 10 MG TABLET PO SCH (09:21)
[2020-11-20] MEDS: POTASSIUM CHLORIDE 20 MEQ TABLET PO SCH (09:21)
[2020-11-20] MEDS: TAMSULOSIN 0.4 MG CAPSULE PO SCH (09:21)
[2020-11-20] MEDS: ISOSORBIDE MONONITRATE 60 MG TABLET PO SCH ×2 (09:21→20:44)
[2020-11-20] MEDS: FUROSEMIDE 40 MG TABLET PO SCH (09:21)
[2020-11-20] MEDS: CALCIUM (CARBONATE)/VITAMIN D 600 MG-400 UNIT TABLET PO SCH (09:21)
[2020-11-20] MEDS: PSYLLIUM POWDER 3.7 GM/PACK PO SCH (09:22)
[2020-11-20] MEDS: ENOXAPARIN 30 MG/0.3 ML SYRINGE SUBCUT SCH (20:44)
[2020-11-20] MEDS: traZODone 50 MG TABLET PO SCH (20:44)
[2020-11-20] MEDS: SERTRALINE 100 MG TABLET PO SCH (20:44)
[2020-11-21 04:32] LABS: Basophils % 0.5 % (0.0-0.8); Eosinophils # 0.1 10*3/uL (0.0-0.87); Eosinophils % 2.5 % (0.00-10.9); Hemoglobin 12.8 GM/DL (14.0-18.0); Immature Granulocytes % 0.5 %; Immature Granulocytes Absolute 0.02 #; Lymphocytes # 0.5 10*3/uL (1.4-4.0); Lymphocytes % 11.2 % (21.2-54.2); Mean Corpuscular HGB Conc 32.8 GM/DL (32-36); Mean Corpuscular Volume 96.1 FL (87-102); Mean Platelet Volume 11.4 FL (9.6-12.0); Monocytes % 11.2 % (1.7-12.7); Neutrophils % 74.1 % (38.7-73.9); Red Blood Count 4.06 MC/CUMM (3.8-5.5); Red Cell Distribution Width 16.8 % (9.3-17.3); White Blood Count 4.4 T/CUMM (4-12)
[2020-11-21 04:34] LABS: Platelet Count 77 T/CUMM (130-400)
[2020-11-21 04:55] LABS: Calcium 9.3 MG/DL (8.5-10.1); Osmolality,Calculated 293.1 MOS/KG (273-304)
[2020-11-21 05:26] LABS: Hypochromasia Slight; Ovalocytes 3+; Platelet Estimate Decreased
[2020-11-21] MEDS: ASPIRIN EC 325 MG TABLET PO SCH (10:06)
[2020-11-21] MEDS: ROSUVASTATIN 10 MG TABLET PO SCH (10:07)
[2020-11-21] MEDS: CALCIUM (CARBONATE)/VITAMIN D 600 MG-400 UNIT TABLET PO SCH (10:08)
[2020-11-21] MEDS: FUROSEMIDE 40 MG TABLET PO SCH (10:08)
[2020-11-21] MEDS: ISOSORBIDE MONONITRATE 60 MG TABLET PO SCH ×2 (10:08→20:55)
[2020-11-21] MEDS: PANTOPRAZOLE 40 MG TABLET PO SCH (10:09)
[2020-11-21] MEDS: TAMSULOSIN 0.4 MG CAPSULE PO SCH (10:09)
[2020-11-21] MEDS: POTASSIUM CHLORIDE 20 MEQ TABLET PO SCH (10:10)
[2020-11-21] MEDS: PSYLLIUM POWDER 3.7 GM/PACK PO SCH (10:16)
[2020-11-21] MEDS: FLUCONAZOLE 100 MG TABLET PO SCH (18:08)
[2020-11-21] MEDS: NITROGLYCERIN SL 0.4 MG TABLET SL PRN (18:45)
[2020-11-21] MEDS: ENOXAPARIN 30 MG/0.3 ML SYRINGE SUBCUT SCH (20:52)
[2020-11-21] MEDS: traZODone 50 MG TABLET PO SCH (20:55)
[2020-11-21] MEDS: SERTRALINE 100 MG TABLET PO SCH (20:55)
[2020-11-22 06:19] LABS: Bacteria,Urine Occasional /HPF (Few); Bilirubin,Urine Negative (Negative); Blood, Urine Large mg/dL (Negative); Glucose,Urine (UA) Negative (Negative); Hyaline Casts,Urine 11 /LPF (0-3); Ketones,Urine Negative (Negative); Mucus,Urine Occasional /LPF (Occasional); Nitrite,Urine Negative (Negative); Protein,Urine Negative; RBC,Urine 440 /HPF (0-4); Renal Epithelial Cells,Urine Occasional /HPF (<1); Squamous Epithelial Cell,Urine Occasional /HPF (0-10); Urine Appearance Slightly Hazy (Clear); Urine Color Yellow (Yellow); Urine Specific Gravity 1.012 (1.001-1.035); Urine Urobilinogen < 2.0 EU/DL (0.2-1.0); WBC,Urine 3 /HPF (0-6)
[2020-11-22 06:26] LABS: Basophils % 0.2 % (0.0-0.8); Eosinophils # 0.1 10*3/uL (0.0-0.87); Eosinophils % 1.7 % (0.00-10.9); Hematocrit 39.3 VOL% (42.0-52.0); Immature Granulocytes % 0.2 %; Immature Granulocytes Absolute 0.01 #; Lymphocytes # 0.5 10*3/uL (1.4-4.0); Lymphocytes % 13.2 % (21.2-54.2); Mean Corpuscular HGB Conc 33.1 GM/DL (32-36); Mean Corpuscular Volume 96.3 FL (87-102); Mean Platelet Volume 11.5 FL (9.6-12.0); Neutrophils % 71.7 % (38.7-73.9); Platelet Count 80 T/CUMM (130-400); Red Blood Count 4.08 MC/CUMM (3.8-5.5); Red Cell Distribution Width 16.7 % (9.3-17.3); White Blood Count 4.1 T/CUMM (4-12)
[2020-11-22 06:45] LABS: Calcium 9.5 MG/DL (8.5-10.1); Osmolality,Calculated 298.8 MOS/KG (273-304); Potassium 4.2 MMOL/L (3.5-5.1)
[2020-11-22 06:50] LABS: Calcium 9.3 MG/DL (8.5-10.1); Osmolality,Calculated 298.8 MOS/KG (273-304); Potassium 4.2 MMOL/L (3.5-5.1)
[2020-11-22 06:51] LABS: Uric Acid 15.7 MG/DL (3.5-7.2)
[2020-11-22] MEDS: CALCIUM (CARBONATE)/VITAMIN D 600 MG-400 UNIT TABLET PO SCH (08:27)
[2020-11-22] MEDS: RANOLAZINE 500 MG TABLET PO SCH ×2 (08:27→21:16)
[2020-11-22] MEDS: POTASSIUM CHLORIDE 20 MEQ TABLET PO SCH (08:27)
[2020-11-22] MEDS: ASPIRIN EC 325 MG TABLET PO SCH (08:27)
[2020-11-22] MEDS: TAMSULOSIN 0.4 MG CAPSULE PO SCH (08:27)
[2020-11-22] MEDS: ISOSORBIDE MONONITRATE 60 MG TABLET PO SCH ×2 (08:27→21:16)
[2020-11-22] MEDS: ROSUVASTATIN 10 MG TABLET PO SCH (08:27)
[2020-11-22] MEDS: PSYLLIUM POWDER 3.7 GM/PACK PO SCH (08:28)
[2020-11-22] MEDS: FUROSEMIDE 40 MG TABLET PO SCH (08:28)
[2020-11-22] MEDS: FLUCONAZOLE 100 MG TABLET PO SCH (08:28)
[2020-11-22] MEDS: PANTOPRAZOLE 40 MG TABLET PO SCH (08:28)
[2020-11-22] MEDS: NITROGLYCERIN SL 0.4 MG TABLET SL PRN (08:36)
[2020-11-22] MEDS: ENOXAPARIN 30 MG/0.3 ML SYRINGE SUBCUT SCH (21:16)
[2020-11-22] MEDS: PARoxetine 20 MG TABLET PO SCH (21:16)
[2020-11-22] MEDS: traZODone 50 MG TABLET PO SCH (21:16)
[2020-11-23 06:28] LABS: Basophils % 0.2 % (0.0-0.8); Eosinophils # 0.1 10*3/uL (0.0-0.87); Eosinophils % 1.9 % (0.00-10.9); Hematocrit 39.9 VOL% (42.0-52.0); Hemoglobin 13.2 GM/DL (14.0-18.0); Immature Granulocytes % 0.5 %; Immature Granulocytes Absolute 0.02 #; Lymphocytes # 0.5 10*3/uL (1.4-4.0); Lymphocytes % 12.9 % (21.2-54.2); Mean Corpuscular HGB Conc 33.1 GM/DL (32-36); Mean Corpuscular Volume 95.5 FL (87-102); Monocytes % 13.1 % (1.7-12.7); Neutrophils % 71.4 % (38.7-73.9); Platelet Count 70 T/CUMM (130-400); Red Blood Count 4.18 MC/CUMM (3.8-5.5); Red Cell Distribution Width 16.9 % (9.3-17.3); White Blood Count 4.2 T/CUMM (4-12)
[2020-11-23 06:48] LABS: Ovalocytes Slight; Platelet Estimate Decreased
[2020-11-23 07:00] LABS: Calcium 9.1 MG/DL (8.5-10.1); Osmolality,Calculated 297.8 MOS/KG (273-304); Potassium 4.2 MMOL/L (3.5-5.1)
[2020-11-23] MEDS: RANOLAZINE 500 MG TABLET PO SCH ×2 (08:24→21:18)
[2020-11-23] MEDS: FLUCONAZOLE 100 MG TABLET PO SCH (08:24)
[2020-11-23] MEDS: TAMSULOSIN 0.4 MG CAPSULE PO SCH (08:24)
[2020-11-23] MEDS: PARoxetine 20 MG TABLET PO SCH (08:24)
[2020-11-23] MEDS: ASPIRIN EC 325 MG TABLET PO SCH (08:24)
[2020-11-23] MEDS: PANTOPRAZOLE 40 MG TABLET PO SCH (08:25)
[2020-11-23] MEDS: FUROSEMIDE 40 MG TABLET PO SCH (08:25)
[2020-11-23] MEDS: PSYLLIUM POWDER 3.7 GM/PACK PO SCH (08:25)
[2020-11-23] MEDS: ISOSORBIDE MONONITRATE 60 MG TABLET PO SCH ×2 (08:25→21:19)
[2020-11-23] MEDS: CALCIUM (CARBONATE)/VITAMIN D 600 MG-400 UNIT TABLET PO SCH (08:25)
[2020-11-23] MEDS: ROSUVASTATIN 10 MG TABLET PO SCH (08:25)
[2020-11-23] MEDS: POTASSIUM CHLORIDE 20 MEQ TABLET PO SCH (08:25)
[2020-11-23] MEDS: traZODone 50 MG TABLET PO SCH (21:18)
[2020-11-23] MEDS: ENOXAPARIN 30 MG/0.3 ML SYRINGE SUBCUT SCH (21:19)
[2020-11-24] MEDS: MORPHINE 4 MG/1 ML VIAL IV PRN ×5 (00:51→18:55)
[2020-11-24 07:02] LABS: Basophils % 0.3 % (0.0-0.8); Eosinophils # 0.1 10*3/uL (0.0-0.87); Eosinophils % 1.4 % (0.00-10.9); Hematocrit 37.7 VOL% (42.0-52.0); Hemoglobin 12.2 GM/DL (14.0-18.0); Immature Granulocytes % 0.3 %; Immature Granulocytes Absolute 0.01 #; Lymphocytes # 0.6 10*3/uL (1.4-4.0); Lymphocytes % 16.1 % (21.2-54.2); Mean Corpuscular HGB Conc 32.4 GM/DL (32-36); Mean Corpuscular Volume 96.7 FL (87-102); Mean Platelet Volume 11.8 FL (9.6-12.0); Neutrophils % 68.9 % (38.7-73.9); Platelet Count 63 T/CUMM (130-400); Red Cell Distribution Width 17.2 % (9.3-17.3); White Blood Count 3.5 T/CUMM (4-12)
[2020-11-24 07:14] LABS: Osmolality,Calculated 300.7 MOS/KG (273-304); Potassium 4.5 MMOL/L (3.5-5.1)
[2020-11-24 07:26] LABS: Hypochromasia 1+; Microcytosis 1+; Ovalocytes Slight; Platelet Estimate Decreased
[2020-11-24] MEDS: ROSUVASTATIN 10 MG TABLET PO SCH (08:46)
[2020-11-24] MEDS: clonazePAM 0.5 MG TABLET PO SCH ×2 (08:46→21:38)
[2020-11-24] MEDS: PANTOPRAZOLE 40 MG TABLET PO SCH (08:47)
[2020-11-24] MEDS: FUROSEMIDE 40 MG TABLET PO SCH (08:48)
[2020-11-24] MEDS: CALCIUM (CARBONATE)/VITAMIN D 600 MG-400 UNIT TABLET PO SCH (08:48)
[2020-11-24] MEDS: ISOSORBIDE MONONITRATE 60 MG TABLET PO SCH ×2 (08:48→21:39)
[2020-11-24] MEDS: POTASSIUM CHLORIDE 20 MEQ TABLET PO SCH (08:48)
[2020-11-24] MEDS: PARoxetine 20 MG TABLET PO SCH (08:49)
[2020-11-24] MEDS: ASPIRIN EC 325 MG TABLET PO SCH (08:49)
[2020-11-24] MEDS: FLUCONAZOLE 100 MG TABLET PO SCH (08:49)
[2020-11-24] MEDS: TAMSULOSIN 0.4 MG CAPSULE PO SCH (08:49)
[2020-11-24] MEDS: RANOLAZINE 500 MG TABLET PO SCH ×2 (08:49→21:38)
[2020-11-24] MEDS: PSYLLIUM POWDER 3.7 GM/PACK PO SCH (10:49)
[2020-11-24] MEDS: ENOXAPARIN 30 MG/0.3 ML SYRINGE SUBCUT SCH (21:38)
[2020-11-24] MEDS: traZODone 50 MG TABLET PO SCH (21:38)
[2020-11-25] MEDS: MORPHINE 4 MG/1 ML VIAL IV PRN ×2 (04:17→22:05)
[2020-11-25 05:55] LABS: Basophils % 0.2 % (0.0-0.8); Eosinophils % 0.8 % (0.00-10.9); Hematocrit 42.9 VOL% (42.0-52.0); Hemoglobin 13.9 GM/DL (14.0-18.0); Immature Granulocytes % 0.4 %; Immature Granulocytes Absolute 0.02 #; Lymphocytes # 0.6 10*3/uL (1.4-4.0); Lymphocytes % 11.9 % (21.2-54.2); Mean Corpuscular HGB Conc 32.4 GM/DL (32-36); Mean Corpuscular Volume 96.2 FL (87-102); Mean Platelet Volume 11.5 FL (9.6-12.0); Monocytes % 12.3 % (1.7-12.7); Neutrophils % 74.4 % (38.7-73.9); Platelet Count 73 T/CUMM (130-400); Red Blood Count 4.46 MC/CUMM (3.8-5.5); Red Cell Distribution Width 17.2 % (9.3-17.3); White Blood Count 4.8 T/CUMM (4-12)
[2020-11-25 06:20] LABS: Burr Cells Slight; Ovalocytes Slight; Platelet Estimate Decreased
[2020-11-25 06:21] LABS: Hypochromasia 1+; Microcytosis Slight
[2020-11-25 06:28] LABS: Calcium 9.4 MG/DL (8.5-10.1); Potassium 4.9 MMOL/L (3.5-5.1)
[2020-11-25] MEDS: PSYLLIUM POWDER 3.7 GM/PACK PO SCH (09:12)
[2020-11-25] MEDS: POTASSIUM CHLORIDE 20 MEQ TABLET PO SCH (09:12)
[2020-11-25] MEDS: ISOSORBIDE MONONITRATE 60 MG TABLET PO SCH ×2 (09:12→21:11)
[2020-11-25] MEDS: FUROSEMIDE 40 MG TABLET PO SCH (09:12)
[2020-11-25] MEDS: FLUCONAZOLE 100 MG TABLET PO SCH (09:12)
[2020-11-25] MEDS: ROSUVASTATIN 10 MG TABLET PO SCH (09:13)
[2020-11-25] MEDS: PANTOPRAZOLE 40 MG TABLET PO SCH (09:13)
[2020-11-25] MEDS: ASPIRIN EC 325 MG TABLET PO SCH (09:13)
[2020-11-25] MEDS: PARoxetine 20 MG TABLET PO SCH (09:13)
[2020-11-25] MEDS: TAMSULOSIN 0.4 MG CAPSULE PO SCH (09:13)
[2020-11-25] MEDS: CALCIUM (CARBONATE)/VITAMIN D 600 MG-400 UNIT TABLET PO SCH (09:13)
[2020-11-25] MEDS: clonazePAM 0.5 MG TABLET PO SCH ×2 (09:14→21:11)
[2020-11-25] MEDS: RANOLAZINE 500 MG TABLET PO SCH ×2 (10:16→21:12)
[2020-11-25 17:24] LABS: Hepatitis B Core IgM Quant < 0.05 Index; Hepatitis B Surface Ag Quant < 0.10 Index; Hepatitis B Surface Ag Result Non-Reactive (NonReactive); Hepatitis C Virus Ab Quant 0.07 Index; Hepatitis C Virus Ab Result Non-Reactive (NonReactive)
[2020-11-25] MEDS: traZODone 50 MG TABLET PO SCH (21:11)
[2020-11-25] MEDS: ENOXAPARIN 30 MG/0.3 ML SYRINGE SUBCUT SCH (21:12)
[2020-11-26 06:49] LABS: Basophils % 0.2 % (0.0-0.8); Eosinophils # 0.1 10*3/uL (0.0-0.87); Hematocrit 43.3 VOL% (42.0-52.0); Hemoglobin 14.2 GM/DL (14.0-18.0); Immature Granulocytes % 0.4 %; Immature Granulocytes Absolute 0.02 #; Lymphocytes # 0.6 10*3/uL (1.4-4.0); Lymphocytes % 12.3 % (21.2-54.2); Mean Corpuscular HGB Conc 32.8 GM/DL (32-36); Mean Corpuscular Volume 96.2 FL (87-102); Mean Platelet Volume 11.1 FL (9.6-12.0); Monocytes % 12.1 % (1.7-12.7); Red Cell Distribution Width 17.2 % (9.3-17.3)
[2020-11-26 06:50] LABS: Platelet Count 72 T/CUMM (130-400)
[2020-11-26 07:09] LABS: Calcium 8.7 MG/DL (8.5-10.1); Osmolality,Calculated 303.7 MOS/KG (273-304); Potassium 5.1 MMOL/L (3.5-5.1)
[2020-11-26 07:12] LABS: Platelet Estimate Decreased
[2020-11-26 07:13] LABS: Anisocytosis 2+; Burr Cells 1+; Macrocytosis 1+; Ovalocytes Few; Poikilocytosis 1+; Spherocytes Few
[2020-11-26] MEDS ORDERED: ceFAZolin 1,000 MG in SYRINGE 1 EACH IV ONE (08:30)
[2020-11-26] MEDS ORDERED: SODIUM CHLORIDE 0.9% 250 ML IV SCH (09:30)
[2020-11-26] MEDS ORDERED: BUPIVACAINE MPF 0.25% 30 ML VIAL ONE (09:33)
[2020-11-26] MEDS ORDERED: LIDOCAINE 1%/EPI INJ 20 ML VIAL ONE (09:33)
[2020-11-26] MEDS ORDERED: HEPARIN 5,000 UNIT/1 ML VIAL ONE (09:33)
[2020-11-26] MEDS ORDERED: propofoL 200 MG/20 ML VIAL IV ONE (09:37)
[2020-11-26] MEDS ORDERED: LIDOCAINE 2% 5 ML VIAL ONE (09:37)
[2020-11-26] MEDS ORDERED: fentaNYL 100 MCG/2 ML VIAL ONE (09:38)
[2020-11-26] MEDS ORDERED: MIDAZOLAM 2 MG/2 ML VIAL ONE (09:38)
[2020-11-26] MEDS ORDERED: SODIUM CHLORIDE 0.9% 100 ML IV ONE (09:39)
[2020-11-26] MEDS ORDERED: ceFAZolin 1,000 MG VIAL ONE (09:58)
[2020-11-26] MEDS ORDERED: ETOMIDATE 40 MG/20 ML VIAL IV ONE (10:11)
[2020-11-26] MEDS: ASPIRIN EC 325 MG TABLET PO SCH (10:34)
[2020-11-26] MEDS: TAMSULOSIN 0.4 MG CAPSULE PO SCH (10:35)
[2020-11-26] MEDS: CALCIUM (CARBONATE)/VITAMIN D 600 MG-400 UNIT TABLET PO SCH (10:35)
[2020-11-26] MEDS: FLUCONAZOLE 100 MG TABLET PO SCH (10:35)
[2020-11-26] MEDS: ROSUVASTATIN 10 MG TABLET PO SCH (10:35)
[2020-11-26] MEDS: POTASSIUM CHLORIDE 20 MEQ TABLET PO SCH (10:36)
[2020-11-26] MEDS: PARoxetine 20 MG TABLET PO SCH (10:36)
[2020-11-26] MEDS: clonazePAM 0.5 MG TABLET PO SCH (10:36)
[2020-11-26] MEDS: RANOLAZINE 500 MG TABLET PO SCH ×2 (10:36→21:30)
[2020-11-26] MEDS: PSYLLIUM POWDER 3.7 GM/PACK PO SCH (10:36)
[2020-11-26] MEDS: ISOSORBIDE MONONITRATE 60 MG TABLET PO SCH ×2 (10:36→21:30)
[2020-11-26] MEDS: FUROSEMIDE 40 MG TABLET PO SCH (10:36)
[2020-11-26] MEDS: PANTOPRAZOLE 40 MG TABLET PO SCH (10:36)
[2020-11-26] MEDS ORDERED: HEPARIN 10,000 UNIT/10 ML VIAL IV PRN (12:26)
[2020-11-26] MEDS: traZODone 50 MG TABLET PO SCH (21:30)
[2020-11-26] MEDS: ZINC OXIDE PASTE 113 GM TUBE TOP SCH (21:31)
[2020-11-27 06:01] LABS: Basophils % 0.4 % (0.0-0.8); Eosinophils # 0.1 10*3/uL (0.0-0.87); Eosinophils % 0.9 % (0.00-10.9); Hematocrit 42.1 VOL% (42.0-52.0); Hemoglobin 13.8 GM/DL (14.0-18.0); Immature Granulocytes % 0.4 %; Immature Granulocytes Absolute 0.02 #; Lymphocytes # 0.6 10*3/uL (1.4-4.0); Lymphocytes % 10.6 % (21.2-54.2); Mean Corpuscular HGB Conc 32.8 GM/DL (32-36); Mean Corpuscular Volume 95.7 FL (87-102); Mean Platelet Volume 11.9 FL (9.6-12.0); Monocytes % 11.1 % (1.7-12.7); Neutrophils % 76.6 % (38.7-73.9); Platelet Count 59 T/CUMM (130-400); Red Cell Distribution Width 17.1 % (9.3-17.3); White Blood Count 5.5 T/CUMM (4-12)
[2020-11-27 06:11] LABS: Calcium 8.6 MG/DL (8.5-10.1); Osmolality,Calculated 295.8 MOS/KG (273-304)
[2020-11-27 06:41] LABS: Burr Cells Few; Schistocytes Few
[2020-11-27 06:42] LABS: Macrocytosis 1+; Ovalocytes Few; Platelet Estimate Adequate; Target Cells Slight
[2020-11-27] MEDS ORDERED: ALBUMIN 25% 25 GM in PREMIX 1 EACH IV ONE ×2 (11:00→12:00)
[2020-11-27] MEDS ORDERED: cefOXitin 2,000 MG in SYRINGE 1 EACH IV ONE (12:00)
[2020-11-27] MEDS: ASPIRIN EC 325 MG TABLET PO SCH (14:54)
[2020-11-27] MEDS: CALCIUM (CARBONATE)/VITAMIN D 600 MG-400 UNIT TABLET PO SCH (14:54)
[2020-11-27] MEDS: ROSUVASTATIN 10 MG TABLET PO SCH (14:55)
[2020-11-27] MEDS: FLUCONAZOLE 100 MG TABLET PO SCH (14:55)
[2020-11-27] MEDS: TAMSULOSIN 0.4 MG CAPSULE PO SCH (14:55)
[2020-11-27] MEDS: POTASSIUM CHLORIDE 20 MEQ TABLET PO SCH (14:56)
[2020-11-27] MEDS: FUROSEMIDE 40 MG TABLET PO SCH (14:56)
[2020-11-27] MEDS: PSYLLIUM POWDER 3.7 GM/PACK PO SCH (14:56)
[2020-11-27] MEDS: PARoxetine 20 MG TABLET PO SCH (14:57)
[2020-11-27] MEDS: DOCUSATE SODIUM 100 MG CAPSULE PO SCH ×2 (14:57→20:51)
[2020-11-27] MEDS: POLYETHYLENE GLYCOL POWDER 17 GM PACK PO SCH (14:57)
[2020-11-27] MEDS: PANTOPRAZOLE 40 MG TABLET PO SCH (14:57)
[2020-11-27] MEDS: RANOLAZINE 500 MG TABLET PO SCH ×2 (14:57→20:52)
[2020-11-27] MEDS: ZINC OXIDE PASTE 113 GM TUBE TOP SCH ×2 (15:17→20:51)
[2020-11-27] MEDS: ISOSORBIDE MONONITRATE 60 MG TABLET PO SCH ×2 (15:43→20:52)
[2020-11-27] MEDS: MIDODRINE 5 MG TABLET PO SCH ×2 (15:44→20:52)
[2020-11-27] MEDS: traZODone 50 MG TABLET PO SCH (20:52)
[2020-11-27] MEDS: MORPHINE 4 MG/1 ML VIAL IV PRN (21:49)
[2020-11-28] MEDS: MORPHINE 4 MG/1 ML VIAL IV PRN ×2 (00:20→02:48)
[2020-11-28 06:22] LABS: Basophils % 0.1 % (0.0-0.8); Eosinophils # 0.1 10*3/uL (0.0-0.87); Eosinophils % 0.8 % (0.00-10.9); Hematocrit 41.8 VOL% (42.0-52.0); Immature Granulocytes % 0.4 %; Immature Granulocytes Absolute 0.03 #; Lymphocytes % 14.7 % (21.2-54.2); Mean Corpuscular HGB Conc 33.5 GM/DL (32-36); Mean Corpuscular Volume 94.1 FL (87-102); Mean Platelet Volume 12.4 FL (9.6-12.0); Monocytes % 12.4 % (1.7-12.7); Neutrophils % 71.6 % (38.7-73.9); Red Blood Count 4.44 MC/CUMM (3.8-5.5); Red Cell Distribution Width 17.2 % (9.3-17.3); White Blood Count 7.1 T/CUMM (4-12)
[2020-11-28 06:28] LABS: Platelet Count 53 T/CUMM (130-400)
[2020-11-28 06:47] LABS: Ovalocytes 3+; Platelet Estimate Decreased
[2020-11-28 06:48] LABS: Burr Cells 1+; Schistocytes Few; Tear Drop Cells Few
[2020-11-28 06:48] LABS: Calcium 8.8 MG/DL (8.5-10.1); Osmolality,Calculated 285.2 MOS/KG (273-304); Potassium 5.1 MMOL/L (3.5-5.1)
[2020-11-28] MEDS ORDERED: ALBUMIN 25% 25 GM in PREMIX 1 EACH IV ONE ×2 (09:40→10:00)
[2020-11-28] MEDS: PARoxetine 20 MG TABLET PO SCH (12:49)
[2020-11-28] MEDS: FLUCONAZOLE 100 MG TABLET PO SCH (12:50)
[2020-11-28] MEDS: PANTOPRAZOLE 40 MG TABLET PO SCH (12:50)
[2020-11-28] MEDS: CALCIUM (CARBONATE)/VITAMIN D 600 MG-400 UNIT TABLET PO SCH (12:50)
[2020-11-28] MEDS: RANOLAZINE 500 MG TABLET PO SCH ×2 (12:50→21:32)
[2020-11-28] MEDS: ROSUVASTATIN 10 MG TABLET PO SCH (12:51)
[2020-11-28] MEDS: TAMSULOSIN 0.4 MG CAPSULE PO SCH (12:51)
[2020-11-28] MEDS: DOCUSATE SODIUM 100 MG CAPSULE PO SCH ×2 (12:51→21:32)
[2020-11-28] MEDS: MIDODRINE 5 MG TABLET PO SCH ×3 (12:51→21:08)
[2020-11-28] MEDS: ASPIRIN EC 325 MG TABLET PO SCH (12:51)
[2020-11-28] MEDS: ZINC OXIDE PASTE 113 GM TUBE TOP SCH ×2 (12:52→21:09)
[2020-11-28] MEDS: POLYETHYLENE GLYCOL POWDER 17 GM PACK PO SCH (12:52)
[2020-11-28] MEDS: PSYLLIUM POWDER 3.7 GM/PACK PO SCH (12:52)
[2020-11-28] MEDS: ISOSORBIDE MONONITRATE 60 MG TABLET PO SCH ×2 (12:53→21:08)
[2020-11-28] MEDS: FUROSEMIDE 40 MG TABLET PO SCH (12:54)
[2020-11-28] MEDS: POTASSIUM CHLORIDE 20 MEQ TABLET PO SCH (12:54)
[2020-11-28] MEDS: traZODone 50 MG TABLET PO SCH (21:32)
[2020-11-29 05:08] LABS: Basophils % 0.2 % (0.0-0.8); Eosinophils # 0.1 10*3/uL (0.0-0.87); Eosinophils % 1.3 % (0.00-10.9); Hemoglobin 12.9 GM/DL (14.0-18.0); Immature Granulocytes % 0.4 %; Immature Granulocytes Absolute 0.02 #; Lymphocytes # 0.6 10*3/uL (1.4-4.0); Lymphocytes % 11.4 % (21.2-54.2); Mean Corpuscular HGB Conc 33.1 GM/DL (32-36); Mean Corpuscular Volume 95.4 FL (87-102); Mean Platelet Volume 12.2 FL (9.6-12.0); Monocytes % 8.9 % (1.7-12.7); NRBC # 0.02 10*3/uL; Neutrophils % 77.8 % (38.7-73.9); Platelet Count 42 T/CUMM (130-400); Red Blood Count 4.09 MC/CUMM (3.8-5.5); Red Cell Distribution Width 17.2 % (9.3-17.3); White Blood Count 5.5 T/CUMM (4-12)
[2020-11-29 05:25] LABS: Platelet Estimate Decreased
[2020-11-29 05:28] LABS: Calcium 8.1 MG/DL (8.5-10.1); Potassium 4.2 MMOL/L (3.5-5.1)
[2020-11-29] MEDS: POLYETHYLENE GLYCOL POWDER 17 GM PACK PO SCH (10:06)
[2020-11-29] MEDS: RANOLAZINE 500 MG TABLET PO SCH ×2 (10:07→21:26)
[2020-11-29] MEDS: MIDODRINE 5 MG TABLET PO SCH ×3 (10:07→21:14)
[2020-11-29] MEDS: PANTOPRAZOLE 40 MG TABLET PO SCH (10:08)
[2020-11-29] MEDS: ZINC OXIDE PASTE 113 GM TUBE TOP SCH ×2 (10:08→21:26)
[2020-11-29] MEDS: ISOSORBIDE MONONITRATE 60 MG TABLET PO SCH ×2 (10:08→21:14)
[2020-11-29] MEDS: DOCUSATE SODIUM 100 MG CAPSULE PO SCH ×2 (10:08→21:26)
[2020-11-29] MEDS: ASPIRIN EC 325 MG TABLET PO SCH (10:08)
[2020-11-29] MEDS: POTASSIUM CHLORIDE 20 MEQ TABLET PO SCH (10:08)
[2020-11-29] MEDS: TAMSULOSIN 0.4 MG CAPSULE PO SCH (10:08)
[2020-11-29] MEDS: ROSUVASTATIN 10 MG TABLET PO SCH (10:08)
[2020-11-29] MEDS: FUROSEMIDE 40 MG TABLET PO SCH (10:10)
[2020-11-29] MEDS: CALCIUM (CARBONATE)/VITAMIN D 600 MG-400 UNIT TABLET PO SCH (10:13)
[2020-11-29] MEDS: PSYLLIUM POWDER 3.7 GM/PACK PO SCH (10:13)
[2020-11-29] MEDS: PARoxetine 20 MG TABLET PO SCH (10:13)
[2020-11-29] MEDS ORDERED: SODIUM PHOSPHATE ENEMA 133 ML BOTTLE RECTAL PRN (13:54)
[2020-11-29] MEDS ORDERED: BISACODYL 10 MG SUPP RECTAL ONE (13:54)
[2020-11-29] MEDS: traZODone 50 MG TABLET PO SCH (21:26)
[2020-11-30] MEDS: MORPHINE 4 MG/1 ML VIAL IV PRN (01:24)
[2020-11-30 05:00] LABS: Basophils % 0.2 % (0.0-0.8); Eosinophils % 0.6 % (0.00-10.9); Hematocrit 39.9 VOL% (42.0-52.0); Hemoglobin 13.2 GM/DL (14.0-18.0); Immature Granulocytes % 0.5 %; Immature Granulocytes Absolute 0.03 #; Lymphocytes # 0.6 10*3/uL (1.4-4.0); Lymphocytes % 9.5 % (21.2-54.2); Mean Corpuscular HGB Conc 33.1 GM/DL (32-36); Mean Corpuscular Volume 93.9 FL (87-102); Mean Platelet Volume 12.2 FL (9.6-12.0); Monocytes % 10.4 % (1.7-12.7); NRBC # 0.02 10*3/uL; Neutrophils % 78.8 % (38.7-73.9); Platelet Count 44 T/CUMM (130-400); Red Blood Count 4.25 MC/CUMM (3.8-5.5); Red Cell Distribution Width 17.5 % (9.3-17.3); White Blood Count 6.5 T/CUMM (4-12)
[2020-11-30 05:21] LABS: Acanthocytes Few; Hypochromasia 1+; Microcytosis 1+; Ovalocytes Few
[2020-11-30 05:22] LABS: Calcium 8.3 MG/DL (8.5-10.1); Osmolality,Calculated 282.1 MOS/KG (273-304); Potassium 4.9 MMOL/L (3.5-5.1); Target Cells Slight
[2020-11-30 05:24] LABS: Platelet Estimate Decreased
[2020-11-30] MEDS ORDERED: cefOXitin 2,000 MG in SYRINGE 1 EACH IV ONE (06:00)
[2020-11-30] MEDS ORDERED: fentaNYL 100 MCG/2 ML VIAL ONE (08:51)
[2020-11-30] MEDS ORDERED: LIDOCAINE 2% 5 ML VIAL ONE (08:51)
[2020-11-30] MEDS ORDERED: SUCCINYLCHOLINE 200 MG/10 ML VIAL ONE (08:51)
[2020-11-30] MEDS ORDERED: propofoL 200 MG/20 ML VIAL IV ONE (08:51)
[2020-11-30] MEDS ORDERED: ROCURONIUM 50 MG/5 ML VIAL IV ONE (08:51)
[2020-11-30] MEDS ORDERED: ETOMIDATE 40 MG/20 ML VIAL IV ONE (09:13)
[2020-11-30] MEDS ORDERED: SODIUM CHLORIDE 0.9% 250 ML IV SCH (09:30)
[2020-11-30] MEDS ORDERED: ALPRAZolam 0.25 MG TABLET PO PRN (09:30)
[2020-11-30] MEDS ORDERED: ePHEDrine 50 MG/ML VIAL ONE (09:43)
[2020-11-30] MEDS ORDERED: TISSUE ADHESIVE 1 EACH APPLICATOR TOP ONE (09:46)
[2020-11-30] MEDS ORDERED: SEVOFLURANE 1 UNIT/15 MINUTE INH ONE (09:47)
[2020-11-30] MEDS ORDERED: CLORAZEPATE 3.75 MG TABLET PO PRN (13:35)
[2020-11-30] MEDS: CALCIUM (CARBONATE)/VITAMIN D 600 MG-400 UNIT TABLET PO SCH (14:26)
[2020-11-30] MEDS: ASPIRIN EC 325 MG TABLET PO SCH (14:26)
[2020-11-30] MEDS: DOCUSATE SODIUM 100 MG CAPSULE PO SCH ×2 (14:26→20:55)
[2020-11-30] MEDS: POLYETHYLENE GLYCOL POWDER 17 GM PACK PO SCH (14:26)
[2020-11-30] MEDS: ROSUVASTATIN 10 MG TABLET PO SCH (14:26)
[2020-11-30] MEDS: PSYLLIUM POWDER 3.7 GM/PACK PO SCH (14:27)
[2020-11-30] MEDS: ZINC OXIDE PASTE 113 GM TUBE TOP SCH ×2 (14:27→20:56)
[2020-11-30] MEDS: PARoxetine 20 MG TABLET PO SCH (14:27)
[2020-11-30] MEDS: MIDODRINE 5 MG TABLET PO SCH ×3 (14:27→21:03)
[2020-11-30] MEDS: PANTOPRAZOLE 40 MG TABLET PO SCH (14:27)
[2020-11-30] MEDS: RANOLAZINE 500 MG TABLET PO SCH (14:27)
[2020-11-30] MEDS: POTASSIUM CHLORIDE 20 MEQ TABLET PO SCH (14:27)
[2020-11-30] MEDS: ISOSORBIDE MONONITRATE 60 MG TABLET PO SCH (14:37)
[2020-11-30] MEDS: FUROSEMIDE 40 MG TABLET PO SCH (14:37)
[2020-11-30] MEDS: TAMSULOSIN 0.4 MG CAPSULE PO SCH (14:37)
[2020-11-30] MEDS: ACETAMINOPHEN 325 MG TABLET PO PRN ×2 (16:27→20:55)
[2020-11-30] MEDS: traZODone 50 MG TABLET PO SCH (20:55)
[2020-11-30] MEDS ORDERED: TAMSULOSIN 0.4 MG CAPSULE PO SCH (21:00)
[2020-12-01] MEDS ORDERED: SODIUM CHLORIDE 0.9% 250 ML IV ONE ×2 (01:11→02:01)
[2020-12-01 06:41] LABS: Basophils % 0.1 % (0.0-0.8); Eosinophils # 0.1 10*3/uL (0.0-0.87); Hematocrit 43.7 VOL% (42.0-52.0); Hemoglobin 14.2 GM/DL (14.0-18.0); Immature Granulocytes % 0.4 %; Immature Granulocytes Absolute 0.03 #; Lymphocytes # 0.8 10*3/uL (1.4-4.0); Lymphocytes % 9.7 % (21.2-54.2); Mean Corpuscular HGB Conc 32.5 GM/DL (32-36); Mean Corpuscular Volume 95.6 FL (87-102); Mean Platelet Volume 12.5 FL (9.6-12.0); Monocytes % 10.3 % (1.7-12.7); NRBC # 0.03 10*3/uL; Neutrophils % 78.5 % (38.7-73.9); Platelet Count 42 T/CUMM (130-400); Red Blood Count 4.57 MC/CUMM (3.8-5.5); Red Cell Distribution Width 17.5 % (9.3-17.3)
[2020-12-01 06:59] LABS: Calcium 8.6 MG/DL (8.5-10.1); Osmolality,Calculated 280.5 MOS/KG (273-304)
[2020-12-01 07:03] LABS: Acanthocytes Few; Ovalocytes Slight; Platelet Estimate Decreased
[2020-12-01 07:41] VITALS: BP 91/45
[2020-12-01] MEDS: POTASSIUM CHLORIDE 20 MEQ TABLET PO SCH (08:06)
[2020-12-01] MEDS: PARoxetine 20 MG TABLET PO SCH (08:06)
[2020-12-01] MEDS: ASPIRIN EC 325 MG TABLET PO SCH (08:06)
[2020-12-01] MEDS: MIDODRINE 5 MG TABLET PO SCH (08:07)
[2020-12-01] MEDS: POLYETHYLENE GLYCOL POWDER 17 GM PACK PO SCH (08:07)
[2020-12-01] MEDS: DOCUSATE SODIUM 100 MG CAPSULE PO SCH (08:07)
[2020-12-01] MEDS: ROSUVASTATIN 10 MG TABLET PO SCH (08:08)
[2020-12-01] MEDS: PANTOPRAZOLE 40 MG TABLET PO SCH (08:08)
[2020-12-01] MEDS ORDERED: CLORAZEPATE 3.75 MG TABLET PO PRN (08:10)
[2020-12-01] MEDS: ZINC OXIDE PASTE 113 GM TUBE TOP SCH (08:27)
[2020-12-01] MEDS: PSYLLIUM POWDER 3.7 GM/PACK PO SCH (08:27)
[2020-12-01] MEDS ORDERED: ISOSORBIDE MONONITRATE 60 MG TABLET PO SCH (09:00)
[2020-12-01] MEDS ORDERED: ALFUZOSIN 10 MG TABLET PO SCH (09:00)
[2020-12-01] MEDS ORDERED: RANOLAZINE 500 MG TABLET PO SCH (09:00)
== END 2020-12-01 10:00 | disposition home health service (06) | DRG 291 ==
LOC: N.EDINP 12:48 → N.ED 12:48 → N.TELEN 16:37
PROVIDERS: ADMIT Internal Medicine Cardiovascular Disease; ATTEND Internal Medicine Cardiovascular Disease